=== PATIENT | female | born 1975 | race Caucasian/White ===

== ENCOUNTER → 2024-05-07 | Outpatient (CLI) | payer OTHER, SELFPAY | END | disposition home or self-care (01) | LOC: LABSPEC 16:57 | PROVIDERS: Referring Provider Nurse Practitioner Family; Visit Provider Nurse Practitioner Family | DX: Z12.4 Encounter for screening for malignant neoplasm of cervix (principal) | CPT/HCPCS: 87624; 88175; G0145 ==

== ENCOUNTER → 2024-05-25 | Outpatient (CLI) | payer OTHER, SELFPAY ==
--- NOTE | 2024-05-25 07:58 | BI_ITS ---
PROCEDURE: SCRN MAMM (CAD)W/GOLDY BILAT REASON FOR EXAM: F, Age 48 y/o, no family history. Routine mammographic follow-up. TECHNIQUE: Bilateral screening digital breast tomosynthesis with 2D and 3D images. Computer aided detection. COMPARISON: Prior exam(s) dating back to outside study dated 12/19/2017.. FINDINGS: The breasts are heterogeneously dense which may obscure small masses. Since prior study, there has been a decrease in size of the left breast nodules. There are 2 adjacent well-defined nodules in the upper- outer aspect of the left breast. The larger measures 1 cm x 1 cm. Small residual right retroareolar nodules. Correlation with ultrasound recommended. No suspicious masses, areas of developing architectural distortion, or suspicious calcifications. BI/SCRN MAMM (CAD)W/GOLDY BILAT IMPRESSION: BI-RADS 0: INCOMPLETE - NEED ADDITIONAL IMAGING EVALUATION. Follow-up code: Sonographic correlation of both breasts recommended. The patient will be notified of the results by letter. Reading Location: [facility]
== END | disposition home or self-care (01) ==
LOC: OPBI 07:56
PROVIDERS: PCP Family Medicine; Referring Provider Nurse Practitioner Family; Visit Provider Nurse Practitioner Family
DX: Z12.31 Encounter for screening mammogram for malignant neoplasm of breast (principal)
CPT/HCPCS: 77063; 77067

== ENCOUNTER → 2024-05-27 | Outpatient (CLI) | payer OTHER, SELFPAY ==
--- NOTE | 2024-05-27 08:35 | US_ITS ---
PROCEDURE: BREAST LIMITED UNILATERAL REASON FOR EXAM: Abnormal screening mammogram. COMPARISON: Comparison is made with prior mammogram dated May 25, 2024. TECHNIQUE: Targeted bilateral breast ultrasound. FINDINGS: RIGHT: Ultrasound targeted to the retroareolar region of the right breast. At the right breast. Multiple small cysts are seen corresponding to the mammographic finding. The largest cyst measures 1.1 cm x 1.1 cm x 0.6 cm. US/Breast Limited Unilateral IMPRESSION: The mammographic findings correspond to multiple small cysts in the retroareola r region of the right breast as described. The largest cyst measures 1.1 cm x 1.1 cm x 0.6 cm. BI-RADS 2: BENIGN. RECOMMEND ANNUAL MAMMOGRAPHIC SCREENING. Reading Location: [facility]
--- NOTE | 2024-05-27 08:35 | US_ITS ---
PROCEDURE: BREAST LIMITED UNILATERAL REASON FOR EXAM: Abnormal screening mammogram. COMPARISON: Comparison is made with prior mammogram dated May 25, 2024. TECHNIQUE: Targeted right breast ultrasound. FINDINGS: RIGHT: Ultrasound targeted to the retroareolar region of the right breast. Multiple cysts are seen. The largest measures 1.1 cm x 1.1 cm x 0.6 cm. US/Breast Limited Unilateral IMPRESSION: Multiple small cysts are seen in the retroareolar region of the right breast. BI-RADS 2: BENIGN. RECOMMEND ANNUAL MAMMOGRAPHIC SCREENING. Reading Location: [id number]
== END | disposition home or self-care (01) ==
PROVIDERS: PCP Family Medicine; Referring Provider Nurse Practitioner Family; Visit Provider Nurse Practitioner Family
DX: N63.10 Unspecified lump in the right breast, unspecified quadrant (principal); N63.20 Unspecified lump in the left breast, unspecified quadrant
CPT/HCPCS: 76642